=== PATIENT | female | born 1995 | race Caucasian/White ===

== ENCOUNTER 2017-09-05 14:32 | Emergency (ER) | payer MEDICAID ==
[~2017-09-05] VITALS: Ht 165.1 cm; Wt 118.1 kg
[~2017-09-05 14:32] MED LIST: NAPR375T PO
[2017-09-05] MEDS ORDERED: AZIT-57 PO (15:05)
[2017-09-05 15:15] VITALS: BP 132/68
== END 2017-09-05 15:16 | disposition home or self-care (01) ==
LOC: ER 14:33
DX: O26.893 Other specified pregnancy related conditions, third trimester (principal); R21 Rash and other nonspecific skin eruption; T78.40XA Allergy, unspecified, initial encounter; J45.909 Unspecified asthma, uncomplicated; Z88.1 Allergy status to other antibiotic agents; Z3A.29 29 weeks gestation of pregnancy; Y92.9 Unspecified place or not applicable
CPT/HCPCS: 99283